=== PATIENT | female | born 1980 | race American Indian/Alaskan Native ===

== ENCOUNTER 2017-05-31 11:36 | Emergency (ER) | payer MEDICAID ==
[2017-05-31 11:53] VITALS: O2SAT 100
--- NOTE | 2017-05-31 11:55 | C.PDOC ---
History Of Present Illness 36 yo female w/o significant PMHx come in for evaluation of body aches, fatigue gradually developed for past 5-6 days. Pt reports, for past 2 days was unable to keep any solid food, only water. Otherwise, pt denies high fever, chills, drooling, neck pain, CP, SOB, dyspnea, diaphoresis, hematemesis, diarrhea, change in appetite, UTI sx. Ambulate to ED for evaluation, not in nay apparent distress. Time Seen by Provider: 05/31/17 11:43 Chief Complaint (Nursing): Flu-like Symptoms History Per: Patient History/Exam Limitations: no limitations Onset/Duration Of Symptoms: Days (5-6) Current Symptoms Are (Timing): Still Present Sick Contacts (Context): None Past Medical History Reviewed: Historical Data, Nursing Documentation, Vital Signs Vital Signs: Last Vital Signs Temp 99.1 F 05/31/17 12:56 Pulse 98 H 05/31/17 12:56 Resp 18 05/31/17 12:56 BP 129/91 H 05/31/17 12:56 Pulse Ox 100 05/31/17 12:56 Family History: States: No Known Family Hx - Social History Hx Alcohol Use: No Hx Substance Use: No - Immunization History Hx Tetanus Toxoid Vaccination: No Hx Influenza Vaccination: No Hx Pneumococcal Vaccination: No Review Of Systems Except As Marked, All Systems Reviewed And Found Negative. Constitutional: Positive for: Other ((+) body aches, fatigue). Negative for: Fever, Chills Cardiovascular: Negative for: Chest Pain Respiratory: Negative for: Shortness of Breath Gastrointestinal: Negative for: Diarrhea, Hematemesis Musculoskeletal: Negative for: Neck Pain Physical Exam - Physical Exam Appears: Well, Non-toxic, No Acute Distress Skin: Normal Color, Warm, Dry, No Rash Head: Normacephalic Eye(s): bilateral: PERRL Nose: No Flaring, Discharge (scant clear B/L) Oral Mucosa: Moist Tongue: Normal Appearing Lips: Normal Appearing Throat: No Erythema, No Exudate, No Drooling Neck: Trachea Midline, Supple Cardiovascular: Rhythm Regular Respiratory: No Decreased Breath Sounds, No Accessory Muscle Use, No Stridor, No Wheezing Gastrointestinal/Abdominal: Soft, Tenderness (mild epigastric), No Distention, No Guarding Back: No CVA Tenderness Extremity: Normal ROM, No Deformity, No Swelling Neurological/Psych: Oriented x3, Normal Speech ED Course And Treatment O2 Sat by Pulse Oximetry: 100 (RA) Pulse Ox Interpretation: Normal Progress Note: On re-evaluation, pt is Afebrile, hemodynamicaly stable. Non- toxic, tolerate Po well in Ed. PulsEOx 100% RA. No evidence of dehydration, mucosa moist, skin turgor- normal. ENT: No acute findings. Neck: Supple, (-) meningeal sign. Lungs: CTA B/L, BS equla B/L. Abd: benign, (-) guaridng, (-) rebound, (-) localized tenderness. UA review and appears normal. Pt has clinical findings c/w vomiting, r/o viral illness. Pt advised. ref. to f/u with PMD in 1-2 days for re-eavl. return if any new changes Medical Decision Making Medical Decision Making: PLAN: * HCG * Urinalysi s * Pepcid PO * Zofran PO Disposition Counseled Patient/Family Regarding: Studies Performed, Diagnosis, Need For Followup, Rx Given - Disposition Referrals: Shaik Camp MD [Staff Provider] - Disposition: HOME/ ROUTINE Disposition Time: 12:40 Condition: STABLE Additional Instructions: ENCOURAGE FLUIDS BEDREST FOR 1-2 DAYS TAKE MEDICATION ASNEED FOR NAUSEA, VOMITING FOLLOW UP WITH PMD IN 2-3 DAYS FOR RE-EVALUATION. RETURN TO ED IF ANY WORSENING OR NEW CHANGES. 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 - Scribe Statement The provider has reviewed the documentation as recorded by the Scribe Windy Montano All medical record entries made by the Scribe were at my direction and personally dictated by me. I have reviewed the chart and agree that the record accurately reflects my personal performance of the history, physical exam, medical decision making, and the department course for this patient. I have also personally directed, reviewed, and agree with the discharge instructions and disposition.
[2017-05-31 12:15] LABS: HCG,QUALITATIVE URINE NEGATIVE (NEGATIVE)
[2017-05-31 12:21] LABS: SQUAMOUS EPITHIAL 9 /hpf (0-5); URINE BILIRUBIN 1+ (NEGATIVE); URINE BLOOD 3+ (NEGATIVE); URINE CLARITY Hazy (Clear); URINE COLOR Amber (YELLOW); URINE GLUCOSE (UA) NORMAL (Normal); URINE LEUKOCYTE ESTERASE NEG Leu/uL (Negative); URINE NITRATE NEGATIVE (NEGATIVE); URINE PROTEIN 2+ mg/dL (NEGATIVE)
[2017-05-31 12:57] VITALS: BP 129/91; PULSE 98; RESP 18; TEMP 99.1
== END 2017-05-31 13:07 | disposition home or self-care (01) ==
LOC: C.ER 11:36
DX: B34.9 Viral infection, unspecified (principal); R11.10 Vomiting, unspecified